=== PATIENT | female | born 1985 | race Caucasian/White ===

== ENCOUNTER 2016-07-05 23:53 | Inpatient (IN) | payer MEDICARE, OTHER ==
[~2016-07-05] VITALS: Ht 170.2 cm; Wt 60.0 kg
[~2016-07-05 23:53] MED LIST: ALPR-475; FENT1PAT9; HYDR-757; NORE1TAB85
[2016-07-05] MEDS ORDERED: OXYTOCIN 30U/ 0.9% NaCL 500ML 500 ML IV ONE (23:55)
[2016-07-05] MEDS ORDERED: OXYTOCIN 30U/ 0.9% NaCL 500ML 500 ML ONE (23:56)
[2016-07-05] MEDS ORDERED: NEWBORN KIT ONE (23:56)
[2016-07-05] MEDS ORDERED: MISOPROSTOL 200 MCG TABLET ONE (23:57)
[2016-07-05] MEDS ORDERED: LIDOCAINE 1%, 20ML ONE (23:58)
[2016-07-06] MEDS ORDERED: ONDANSETRON 2MG/ML, 2ML IVPush PRN
[2016-07-06] MEDS ORDERED: CALCIUM CARBONATE 500 MG TAB.CHEW PO PRN
[2016-07-06] MEDS ORDERED: FENTANYL PF 100 MCG/2ML IV PRN
[2016-07-06] MEDS ORDERED: TERBUTALINE 1 MG/ML, 1ML SQ PRN
[2016-07-06] MEDS ORDERED: FENTANYL PF 100 MCG/2ML IVPush PRN
[2016-07-06] MEDS ORDERED: FENTANYL PF 100 MCG/2ML ONE (00:04)
[2016-07-06] MEDS: LACTATED RINGERS 1,000 ML IV SCH ×2 (00:10→04:02)
[2016-07-06] MEDS: PENICILLIN GK 2,500,000 UNITS in DEXTROSE 5% 100 ML IVPB SCH ×3 (00:30→08:30)
[2016-07-06] MEDS ORDERED: PENICILLIN GK 5,000,000 UNITS in DEXTROSE 5% 100 ML IVPB ONE (00:30)
[2016-07-06] MEDS: OXYTOCIN 30U/ 0.9% NaCL 500ML 500 ML IV SCH ×9 (01:12→21:12)
[2016-07-06] MEDS ORDERED: IBUPROFEN 600 MG TABLET ONE (01:20)
[2016-07-06] MEDS ORDERED: OXYcodone/APAP 5/325MG TABLET ONE (01:20)
[2016-07-06] MEDS: IBUPROFEN 600 MG TABLET PO PRN ×3 (01:23→18:20)
[2016-07-06] MEDS: OXYcodone/APAP 5/325MG TABLET PO PRN ×3 (01:24→18:20)
[2016-07-06] MEDS ORDERED: OXYcodone/APAP 5/325MG TABLET PO PRN (01:30)
[2016-07-06] MEDS ORDERED: MISOPROSTOL 200 MCG TABLET PR PRN (01:30)
[2016-07-06] MEDS ORDERED: ONDANSETRON 2MG/ML, 2ML IV PRN (01:30)
[2016-07-06] MEDS ORDERED: OXYTOCIN 30U/ 0.9% NaCL 500ML 500 ML ONE (02:06)
[2016-07-06 03:45] VITALS: BP 102/65
[2016-07-06 04:15] VITALS: BP 110/76
[2016-07-06 05:00] VITALS: BP 127/76
[2016-07-06 10:00] VITALS: BP 107/66
[2016-07-06] MEDS: PRENATAL VIT/IRON/FA 1 EACH TABLET PO SCH (10:01)
[2016-07-06 13:00] VITALS: BP 106/70
[2016-07-06] MEDS ORDERED: DIPH,PERTUSS(ACELL),TET VAC/PF NC IM-VACC ONE (15:30)
[2016-07-06 20:51] VITALS: BP 111/76
[2016-07-07 00:50] VITALS: BP 92/52
[2016-07-07] MEDS: OXYTOCIN 30U/ 0.9% NaCL 500ML 500 ML IV SCH ×2 (07:12→17:12)
[2016-07-07] MEDS: PRENATAL VIT/IRON/FA 1 EACH TABLET PO SCH (08:31)
[2016-07-07] MEDS: IBUPROFEN 600 MG TABLET PO PRN ×3 (08:33→22:06)
[2016-07-07] MEDS: OXYcodone/APAP 5/325MG TABLET PO PRN ×2 (14:32→22:06)
[2016-07-07 20:00] VITALS: BP 109/67
[2016-07-08] MEDS: DOCUSATE 100 MG CAPSULE PO PRN ×2 (02:09→10:42)
[2016-07-08] MEDS: OXYTOCIN 30U/ 0.9% NaCL 500ML 500 ML IV SCH (03:12)
[2016-07-08] MEDS: PRENATAL VIT/IRON/FA 1 EACH TABLET PO SCH (09:00)
[2016-07-08 10:30] VITALS: BP 114/79
[2016-07-08] MEDS: IBUPROFEN 600 MG TABLET PO PRN ×2 (10:42→10:44)
[2016-07-08] MEDS: OXYcodone/APAP 5/325MG TABLET PO PRN (10:42)
[2016-07-08] MEDS ORDERED: IBUP-1222 PO (12:05)
[2016-07-08] MEDS ORDERED: OXYC-302 PO (12:05)
[2016-07-08 12:08] VITALS: BP 105/67
== END 2016-07-08 13:00 | disposition home or self-care (01) | DRG 775 ==
LOC: LDOP 23:53 → LDIP 07-06 00:01 → 2NW 07-06 03:23
PROVIDERS: ADMIT Obstetrics & Gynecology; ATTEND Obstetrics & Gynecology
PROC: 10E0XZZ Delivery of Products of Conception, External Approach (ICD-10-PCS; principal; 2016-07-06)
DX: O99.824 Streptococcus B carrier state complicating childbirth (principal); Z3A.40 40 weeks gestation of pregnancy; Z37.0 Single live birth
CPT/HCPCS: 36415; 85025; 86850; 86900; 90715; J2540; J3010; J2590; J7120